=== PATIENT | male | born 2000 | race American Indian/Alaskan Native ===

== ENCOUNTER 2019-05-22 10:05 | Emergency (ER) | payer SELFPAY ==
[2019-05-22 10:13] VITALS: BP 124/79
[2019-05-22 11:36] LABS: Basophils % (Auto) 0.4 % (0.0-1.8); Eosinophils % (Auto) 0.3 % (0.0-4.3); Hemoglobin 15.2 gm/dl (11.8-15.2); Lymphocytes # (Auto) 1.1 K/mm3 (1.2-5.4); Lymphocytes % (Auto) 20.1 % (13.4-35.0); Mean Corpuscular HGB Conc 35 % (32-34); Mean Corpuscular Volume 89 fl (84-94); Monocytes # (Auto) 0.4 K/mm3 (0.0-0.8); Monocytes % (Auto) 6.4 % (0.0-7.3); Platelet Count 247 K/mm3 (140-440); Red Blood Count 4.82 M/mm3 (3.65-5.03)
--- NOTE | 2019-05-22 11:37 | Emergency Department Report ---
HPI - General Chief Complaint: Abdominal Pain Time Seen by Provider: 05/22/19 11:06 - HPI HPI: 19-year-old -[place] male presents to the emergency department with a complaint of some intermittent abdominal pains. The pain is above his umbilicus. While it has been going on intermittently for "some time" patient says that it started last night again, kept him from getting any sleep, and has been going on since. He denies any problems with bowel movements or urination. He had an episode of vomiting 2 nights ago. He denies any past medical history himself but says that he has a family history of Crohn's disease. He tried some Tylenol for his symptoms without any relief. He has a primary care physician but has not seen them regarding his symptoms. No recent travel or sick contacts at home. ED Past Medical Hx - Past Medical History Previous Medical History?: No - Surgical History Past Surgical History?: No - Social History Smoking Status: Never Smoker Substance Use Type: None ED Review of Systems ROS: Stated complaint: LOWER ABD PAIN Other details as noted in HPI Comment: All other systems reviewed and negative Constitutional: denies: chills, fever Respiratory: denies: shortness of breath Cardiovascular: denies: chest pain Gastrointestinal: abdominal pain. denies: diarrhea, constipation Genitourinary: denies: dysuria, hematuria Musculoskeletal: denies: back pain, arthralgia Physical Exam - Physical Exam Vital Signs: Vital Signs 05/22/19 10:11 Temperature 97.7 F Pulse Rate 67 Respiratory 18 Rate Blood Pressure 124/79 O2 Sat by Pulse 99 Oximetry Physical Exam: GENERAL: The patient is well-developed well-nourished. HENT: Normocephalic. Atraumatic. Patient has moist mucous membranes. EYES: Extraocular motions are intact. NECK: Supple. Trachea is midline. CHEST/LUNGS: Clear to auscultation. There is no respiratory distress noted. HEART/CARDIOVASCULAR: Regular. There is no tachycardia. There is no murmur. ABDOMEN: Abdomen is soft. There is some tenderness to palpation to the mid abdomen just above the umbilicus. No guarding. Patient has normal bowel sounds. There is no abdominal distention. SKIN: Skin is warm and dry. NEURO: The patient is awake, alert, and oriented. The patient is cooperative. The patient has normal speech. MUSCULOSKELETAL: There is no tenderness or deformity. There is no limitation range of motion. There is no evidence of acute injury. ED Course Vital Signs 05/22/19 10:11 Temperature 97.7 F Pulse Rate 67 Respiratory 18 Rate Blood Pressure 124/79 O2 Sat by Pulse 99 Oximetry ED Medical Decision Making - Lab Data Result diagrams: 05/22/19 11:20 05/22/19 11:20 - Radiology Data Radiology results: image reviewed interpreted by me: Abdominal x-ray shows nonspecific nonobstructive bowel gas - Medical Decision Making This patient presents with some abdominal pain that has been intermittent but has been constant since last night. Abdomen is soft, nondistended and nontoxic in appearance. His labs were unremarkable except for elevated bilirubin of 2.5 and some hematuria found on urinalysis. Abdominal x-ray showed nonspecific nonobstructive bowel gas. An abdominal ultrasound was ordered to evaluate the abdominal pain and elevated bilirubin but the patient signed out AMA prior to this either be completed or getting the results. He understands that leaving without a finished evaluation could lead to worsening abdominal pain, delayed diagnosis which could include malignancy, worsening of his symptoms, future disability. However the patient is awake, alert and has a normal decision- making capacity and has decided to sign out AGAINST MEDICAL ADVICE anyways. That being said, the patient still has been given a referral for gastroenterology and urology and he understands that he can return to the emergency department if he changes his mind about further evaluation, has worsening of his symptoms, or if any acute distress. - Differential Diagnosis cholelithiasis, choledocholithiasis, gastritis, colitis, malignancy Critical Care Time: No Critical care attestation.: If time is entered above; I have spent that time in minutes in the direct care of this critically ill patient, excluding procedure time. ED Disposition Clinical Impression: Elevated bilirubin Abdominal pain Qualifiers: Abdominal location: periumbilical Qualified Code(s): R10.33 - Periumbilical pain Hematuria Qualifiers: Hematuria type: benign essential microscopic Qualified Code(s): R31.1 - Benign essential microscopic hematuria Disposition: LEFT AGAINST MED ADVICE Is pt being admited?: No Condition: Stable Instructions: Acute Hematuria (ED), Abdominal Pain (ED) Additional Instructions: Please return to the emergency department if you change your mind about further evaluation of your abdominal pain, elevated bilirubin and the blood found in her urine. I have given him a referral for a local monument installer, Dr. Kerns, to follow up regarding the abdominal pain I have given you a referral for a local urologist, Dr. Berman, to follow up regarding the blood in your urine. Referrals: NAYA KERNS MD [Staff Physician] - 3-5 Days SARAHI BERMAN MD [Staff Physician] - 3-5 Days Forms: AMA Form Time of Disposition: 16:39
--- NOTE | 2019-05-22 11:41 | XRay Report ---
ABDOMEN SUPINE AND UPRIGHT HISTORY: abd pain. COMPARISON: None. FINDINGS: Clear lung bases. Normal gas pattern with no distended bowel or air-fluid levels. Stool thr oughout the colon. No free air. No suspicious calcifications. No mass. The bones and soft tissues are normal. IMPRESSION: Normal abdomen. Signer Name: Ortiz Gorman MD Signed: 05/22/2019 11:37 AM Workstation Name: [id number]
[2019-05-22 12:00] LABS: Alanine Aminotransferase 22 units/L (7-56); Albumin 4.7 g/dL (3.9-5); BUN/Creatinine Ratio 13; Blood Urea Nitrogen 9 mg/dL (9-20); Hemolysis Index 20
[2019-05-22 12:14] LABS: Bilirubin,Urine NEG (Negative); Blood,Urine MOD (Negative); Color,Urine Yellow (Yellow); Mucus,Urine 2+ /HPF
--- NOTE | 2019-05-22 18:17 | Ultrasound Report ---
ULTRASOUND ABDOMEN, LIMITED (RIGHT UPPER QUADRANT) INDICATION: Upper abdominal pain and elevated bilirubin. COMPARISON: None available. FINDINGS: PANCREAS: No significant abnormality. LIVER: Generalized prominence of the portal triads throughout the liver. No focal lesion and normal d irectional blood flow in the main portal vein. GALLBLADDER: Mildly echogenic bile without gallstones. The gallbladder is normal in size without wall thickening. BILE DUCTS: No significant abnormality. Common bile duct measures 1.4 mm mm. FREE FLUID: None. ADDITIONAL FINDINGS: Images the right kidney are normal. IMPRESSION: Generalized prominence of the portal triads in the liver raises the possibility of hepati tis. Signer Name: Patrice Addison MD Signed: 05/22/2019 6:12 PM Workstation Name: [id number]
== END 2019-05-22 13:59 | disposition left against medical advice (07) ==
LOC: ED 10:05
DX: R10.9 Unspecified abdominal pain (principal); R31.9 Hematuria, unspecified; R17 Unspecified jaundice
CPT/HCPCS: 36415; 74019; 76705; 80053; 81001; 83690; 85025